=== PATIENT | female | born 1965 | race Caucasian/White ===

== ENCOUNTER 2017-05-09 05:40 | Day surgery (SDC) | payer BC ==
[2017-05-06 09:08] VITALS: BMI 35.9
--- NOTE | 2017-05-06 14:39 | HP ---
HISTORY OF PRESENT ILLNESS: Ms. Adler is a 52-year-old female that presents with low back pain and bilateral pain, numbness and tingling in the L5 dermatome. She has had this pain for about 4 years a nd it has gotten worse over the time. She has had mild weakness in the right extensor hallucis longu s compared to the left. She has had aching on bilateral sides of the feet, but no numbness on the to p the feet. She denies any incontinence. The pain is made worse with walking and better with analge sics and lying down. She has not had any physical therapy, but has had injections in the lumbar spin e with Dr. Luke from [place]. Imaging, MRI of the lumbar spine in [place] on CD. REVIEW OF SYSTEMS: Ten-point review of systems completed is otherwise negative unless stated in the above HPI. PAST MEDICAL HISTORY: Hypertension. PAST SURGICAL HISTORY: . FAMILY HISTORY: Father is alive, diagnosed with diabetes, hypertension, and heart disease. Mother i s alive, diagnosed with hypertension. SOCIAL HISTORY: Patient is a smoker, 1 pack a day x10 years. She has occasional marijuana use. She is a parking cashier. She is and has 2 children. MEDICATIONS: None. ALLERGIES: No known drug allergies. PHYSICAL EXAMINATION: HEENT: Normocephalic, atraumatic. Hearing intact. Moist mucous membranes. Trachea is midline. Ey es: Pupils are equal and reactive to light. Extraocular muscles are intact. Sclerae white and rusty cteric. PSYCHIATRIC: Normal mood and affect. CARDIOVASCULAR/CARDIOPULMONARY: No cyanosis or clubbing noted. Intact pedal pulses bilaterally. MUSCULOSKELETAL: Lower extremity, 4/5 strength in the right EHL. Sensory deficits bilaterally in th e L5 dermatome. Nontender to palpation in the midline lumbar spine. RESPIRATORY: Even respirations, good effort. All lung segovia sound clear with no wheezing or crackl es. NEUROLOGIC: Cranial nerves II-XII grossly intact. Speech is fluent. She answers my questions appro priately. The patient has normal gait and station. ASSESSMENT: 1. Lumbar radiculopathy. 2. Lumbago with sciatica on the right side. PLAN: Dr. Escobar has offered an L4-L5 HNP to help relieve her pain. We discussed the L4-L5 for H MINE GEOLOGIST laminectomy to help relieve her pain. We offered to do foraminotomy. We discussed the risks, ruslan efits, and possible complications of the surgery. The patient is fully aware of the risk and is will ing to proceed with the surgery.
[2017-05-09] MEDS ORDERED: Bupivacaine/Epinephrine 0.25% 30 ML VIAL ONE (06:42)
[2017-05-09] MEDS ORDERED: Thrombin 5000 UNITS/5 ML VIAL ONE (06:42)
[2017-05-09] MEDS ORDERED: Sodium Chloride 0.9% 10 ML ONE (06:42)
[2017-05-09 06:48] LABS: #Basophils 0.1 thou/uL (0.0-0.2); #Eosinphils 0.3 thou/uL (0.0-0.7); #Lymphocytes 2.6 thou/uL (1.20-3.40); #Monocytes 0.5 thou/uL (0.11-0.59); %Basophils 1.2 % (0.0-1.0); %Eosinophils 3.6 % (0.0-10.0); %Lymphocytes 34.7 % (21.0-51.0); %Monocytes 6.8 % (0.0-10.0); %Neutrophils 53.8 % (42.0-75.0); Hemoglobin 13.2 g/dL (12.0-16.0); Mean Corpuscular Hemoglobin 31.4 pg (27.0-31.0); Mean Corpuscular Volume 95.2 fl (81.0-99.0); Mean Platelet Volume 8.4 fL (7.4-10.4); Platelet Count 336 thou/uL (130-400); RBC Distribution Width 11.4 % (11.5-14.5); Red Blood Cell (RBC) Count 4.19 mill/uL (4.20-5.40); White Blood Cell (WBC) Count 7.5 thou/uL (4.8-10.8)
[2017-05-09] MEDS ORDERED: Midazolam HCl 2 mg/2 ml Vial ONE (06:54)
[2017-05-09 06:55] LABS: PTT 26.8 SEC (22.9-36.1); Prothrombin Time 13.7 SEC (12.0-14.7)
[2017-05-09] MEDS ORDERED: Fentanyl 250 MCG/5 ML VIAL ONE (06:57)
[2017-05-09] MEDS ORDERED: CEFAZOLIN/Water 2 GM/20 ML SYRINGE ONE (06:58)
[2017-05-09 07:27] LABS: Anion Gap 14 mmol/L (10-20); BUN (Urea Nitrogen) 22 mg/dL (9.8-20.1); Calc. Creatinine Clearance 108 mL/min (70-130); Calcium 9.8 mg/dL (7.8-10.44); Carbon Dioxide 25 mmol/L (22-29); Chloride 105 mmol/L (98-107); Estimated GFR-MDRD 72; Glucose 125 mg/dL (70-105); Potassium 3.7 mmol/L (3.5-5.1); Sodium 140 mmol/L (136-145)
[2017-05-09] MEDS ORDERED: Albuterol Sulfate HFA (OR ONLY) ONE (07:55)
--- NOTE | 2017-05-09 09:34 | OP ---
DATE OF PROCEDURE: 05/09/2017 SURGEON: Swetha Escobar PUBLIC HE[facility] DOCTOR: Robert Melton PA-C. PREOPERATIVE INDICATION: Treat pain, prevent neurological deterioration. PREOPERATIVE DIAGNOSES: Lumbar stenosis with neurogenic claudication, L4-L5. POSTOPERATIVE DIAGNOSIS: Lumbar stenosis with neurogenic claudication, L4-L5. OPERATIVE PROCEDURES: Decompressive laminectomy, medial facetectomy, foraminotomy L4-L5. PREOPERATIVE MEDICATION: Ancef 2 grams IV. DRAIN NUMBER: Zero. DRAIN TYPE: None. OPERATIVE DICTATION: The patient was brought to the operating room. General endotracheal anesthesia was induced. The patient was positioned prone on gel-filled chest rolls. A lateral fluoro radiogra ph was used to plan our incision. The lumbar skin was sterilely prepped and draped. We opened with a 10 blade knife. We controlled bleeding with bipolar and monopolar cautery and used monopolar caute ry to dissect through the subcutaneous tissues to the thoracodorsal fascia. We incised the fascia in the midline and reflected the paraspinal muscles off the spinous process and lamina of L4 and L5 and a self-retaining retractor was placed. A lateral fluoro radiograph was used to confirm the level up on which we were operating. We used Adson and Kerrison rongeurs, we fashioned the laminectomy at L4- L5. We widened our laminectomy defect until we were flush with the pedicles. The operative microsco pe was brought into the field. Under microscopic magnification using microsurgical techniques, we removed the yellow ligament, perfo rmed medial facetectomies. We identified the traversing and exiting L5 nerve roots as well as the L4 nerve roots and performed foraminotomies over these roots. We made sure a Avina ball probe could p ass through the lateral foramina without impingement. We irrigated copiously with bacitracin irrigat ion and we waxed the bone edges. We infused local anesthetic in the paraspinal muscles and closed th e wound in anatomic layers. This was a clean case and no contamination.
[2017-05-09] MEDS ORDERED: Fentanyl 100 MCG/2 ML VIAL ONE (10:06)
[2017-05-09] MEDS ORDERED: Morphine 4 MG/ML VIAL ONE (10:54)
[2017-05-09] MEDS ORDERED: HYDROcodone/Acetaminophen 5/325 mg Tablet ONE (12:23)
[2017-05-09] MEDS ORDERED: Propofol 200 MG/20 ML VIAL ONE (13:41)
[2017-05-09] MEDS ORDERED: Lidocaine 1% PF 5 ML VIAL ONE (13:41)
[2017-05-09] MEDS ORDERED: Dexamethasone 20 MG/5 ML VIAL ONE (13:41)
[2017-05-09] MEDS ORDERED: Ondansetron HCl/PF 4 MG/2 ML Vial ONE (13:41)
[2017-05-09] MEDS ORDERED: Vecuronium 10 MG VIAL ONE (13:41)
[2017-05-09] MEDS ORDERED: PHENYLEPHRINE-NS 100 MCG/ML 10 ML SYRINGE ONE (13:41)
[2017-05-09] MEDS ORDERED: Glycopyrrolate 0.2 MG/ML 5 ML SYRINGE ONE (13:41)
[2017-05-09] MEDS ORDERED: Metoclopramide HCl 10 MG/2 ML VIAL ONE (13:41)
--- NOTE | 2017-05-09 17:48 | EKG ---
Test Reason : PREOP Blood Pressure : / mmHG Vent. Rate : 081 BPM Atrial Rate : 081 BPM P-R Int : 152 ms QRS Dur : 088 ms QT Int : 406 ms P-R-T Axes : 036 049 032 degrees QTc Int : 471 ms Normal sinus rhythm Normal ECG No previous ECGs available Confirmed by DR. Yvrose GUILLEN MD ([id number]) on 05/09/2017 5:48:04 PM Referred By: JOLIE Confirmed By:DR. Yvrose GUILLEN MD
== END 2017-05-09 13:35 | disposition home or self-care (01) ==
LOC: SDC 05:40
PROVIDERS: ATTEND Neurological Surgery
PROC: 01NB0ZZ Release Lumbar Nerve, Open Approach (ICD-10-PCS; principal; 2017-05-09)
DX: M48.062 Spinal stenosis, lumbar region with neurogenic claudication (principal); I10 Essential (primary) hypertension; F17.210 Nicotine dependence, cigarettes, uncomplicated; E78.5 Hyperlipidemia, unspecified; G47.30 Sleep apnea, unspecified; E03.9 Hypothyroidism, unspecified; E66.9 Obesity, unspecified; K31.84 Gastroparesis; Z68.35 Body mass index [BMI] 35.0-35.9, adult; Z79.899 Other long term (current) drug therapy; Z99.89 Dependence on other enabling machines and devices; Z90.710 Acquired absence of both cervix and uterus; Z98.890 Other specified postprocedural states
CPT/HCPCS: 36415; 76001; 80048; 85025; 85610; 85730; 93005; 93010; 96374; A4216; J0131; J2250; J2270; J3010; J3370; J3490